=== PATIENT | female | born 1985 | race Caucasian/White ===

== ENCOUNTER 2020-01-28 08:54 | Emergency (ER) | payer MEDICAID, SELFPAY ==
[2020-01-28 09:09] VITALS: BP 118/74; PULSE 83; RESP 20; TEMP 36.9; O2SAT 100
--- NOTE | 2020-01-28 09:18 | ED.URI ---
HPI - URI/Sore Throat General Chief Complaint: Upper Respiratory Infection Stated Complaint: Cold/Flu symptoms Time Seen by Provider: 01/28/20 09:26 Source: patient and RN notes reviewed Mode of arrival: ambulatory Limitations: no limitations History of Present Illness HPI Narrative: 34-year-old female presents with concern for cough, sore throat, low-grade fever, headache. Reports symptoms started yesterday. Reports exposure to influenza. Reports taking Motrin. MD elicited complaint: sore throat Related Data Home Medications Medication Instructions Recorded Confirmed citalopram [Celexa] 10 mg PO DAILY 01/28/20 01/28/20 levonorgestrel [Mirena] INTRAUTERINE 01/28/20 Allergies Allergy/AdvReac Type Severity Reaction Status Date / Time AMOXICILLIN TRIHYDRATE AdvReac Mild Nausea and Uncoded 10/01/19 09:50 Vomiting POTASSIUM CLAVULANATE AdvReac Mild Nausea and Uncoded 10/01/19 09:50 Vomiting Review of Systems Review of Systems: Narrative: CONSTITUTIONAL: Reports malaise, low-grade fever. EYES: Denies visual changes, redness, or discharge. ENT: Reports rhinorrhea, congestion, sore throat. Denies sinus pain, otalgia. CARDIOVASCULAR: Denies chest pain, palpitations, or edema. RESPIRATORY: Reports cough. Denies dyspnea. GASTROINTESTINAL: Denies abdominal pain, nausea, vomiting, diarrhea SKIN: Denies rash or itching. MUSCULOSKELETAL: Reports myalgia. NEUROLOGIC: Report headache. All systems reviewed & are unremarkable except as noted in HPI and below PMFSH Comments At time of signature, agree with nursing past medical, surgical, social and family history. There is no relevant family history pertinent to the presenting complaint Exam Narrative: Exam Narrative: GENERAL: Well-appearing, well-nourished, and in no acute distress. HEAD: Normocephalic EYES: PERRLA, conjunctivae clear ENT: Nares clear, turbinates edematous and erythematous, clear discharge. Mucous membranes moist. TM pearly cage with sharp light reflex bilaterally; no tragal tenderness. Oropharynx not erythematous without lesions. Tonsils not enlarged and without exudate, no drooling, no hoarseness, no trismus, uvula midline. NECK: Supple. No lymphadenopathy CHEST: Clear to auscultation, breath sounds equal. No wheezing, rhonchi, rales, or stridor. No respiratory distress, speaks in full sentences. HEART: Regular rate and rhythm. No murmur heard. SKIN: Warm, dry, no rash. NEURO: Alert and oriented x3. PSYCH: Normal mood and affect Course Course Emergency Course: Patient is aware of diagnosis, understands and agrees to treatment plan. Anticipatory guidance given. Patient agrees to follow-up as directed and is aware of reasons to seek care at the emergency department. Portions of this record may have been created with voice recognition software Vital Signs Vital signs: Vital Signs Temperature 98.5 F 01/28/20 09:09 Pulse Rate 83 01/28/20 09:09 Respiratory Rate 20 01/28/20 09:09 Blood Pressure 118/74 01/28/20 09:09 Pulse Oximetry 100 01/28/20 09:09 Temperature 98.5 F 01/28/20 09:09 Pulse Rate 83 01/28/20 09:09 Respiratory Rate 20 01/28/20 09:09 Blood Pressure 118/74 01/28/20 09:09 Pulse Oximetry 100 01/28/20 09:09 Reviewed. MDM - URI/Sore Throat MDM Narrative Medical decision making narrative: Differential diagnosis considered: Strep pharyngitis, allergic rhinitis, upper respiratory tract infection, sinusitis, rhinosinusitis, nasopharyngitis. viral pharyngitis, otitis media, otitis externa, pneumonia, bronchitis, viral cough syndrome, viral syndrome, and influenza. Exam findings show no acute concerns or changes; patient is non-toxic appearing and is in no distress. Patient is appropriate for outpatient treatment and follow-up. Lab Data Attestation: I reviewed the patient's lab results. Critical Care Time Critical Care Time Critical Care Time: No Discharge Plan Discharge Clinical Impression: Upper respir
== END 2020-01-28 09:45 | disposition home or self-care (01) ==
PROVIDERS: Emergency Provider Nurse Practitioner
DX: J06.9 Acute upper respiratory infection, unspecified (principal)
CPT/HCPCS: 87804; 99213; G0463

== ENCOUNTER 2021-03-21 12:01 | Emergency (ER) | payer OTHER, SELFPAY ==
--- NOTE | ~2021-03-21 | XR_ITS ---
XR ankle LT min 3V DATE: 03/21/2021 12:18 INDICATION: Inversion injury. Lateral pain. TECHNIQUE: 4 views COMPARISON: None FINDINGS: There is a linear oblique fracture of the lateral malleolus with approximately one cortical width lateral and posterior displacement. Medial malleolus and the posterior malleolus appear intact . The ankle mortise appears preserved. IMPRESSION: Minimally posterolaterally displaced lateral malleolar fracture Reviewed, dictated and finalized at location A.
[2021-03-21 12:05] VITALS: BP 126/70; PULSE 128; RESP 16; TEMP 37.2; O2SAT 100
--- NOTE | 2021-03-21 12:05 | ED.GENADULT ---
HPI - General Adult General Chief complaint: Extremity Injury, Lower Stated complaint: Left ankle injury Time Seen by Provider: 03/21/21 12:04 Source: patient Mode of arrival: ambulatory Limitations: no limitations History of Present Illness HPI narrative: 35-year-old female patient presents to the [facility] with complaints of left ankle pain since last night. Patient states that she was getting out of her car rolled her ankle. Patient states that she slept with the elevated last night and has taken ibuprofen for the pain. Patient states she woke up this morning continues to have pain especially when walking on it as well swelling and wanted to come in to get checked out. Denies any numbness or tingling to the toes. Related Data Home Medications Medication Instructions Recorded Confirmed fluoxetine 10 mg PO DAILY 03/21/21 03/21/21 Allergies Allergy/AdvReac Type Severity Reaction Status Date / Time AMOXICILLIN TRIHYDRATE AdvReac Mild Nausea and Uncoded 03/21/21 12:12 Vomiting POTASSIUM CLAVULANATE AdvReac Mild Nausea and Uncoded 03/21/21 12:12 Vomiting Review of Systems Review of Systems: Narrative: CONSTITUTIONAL: Denies fever, chills, or sweats. EYES: Denies visual changes, redness, or discharge. ENT: Denies rhinorrhea, congestion, sore throat, or otalgia. CARDIOVASCULAR: Denies chest pain, palpitations, or edema. RESPIRATORY: Denies cough or dyspnea. GASTROINTESTINAL: Denies abdominal pain, nausea, vomiting, or diarrhea. GENITOURINARY: Denies dysuria or hematuria. SKIN: Denies rash or itching. MUSCULOSKELETAL: Denies back pain, joint pain, or myalgia. Positive left ankle pain NEUROLOGIC: Denies headache, numbness, or weakness. PSYCHIATRIC: Denies anxiety or depression. [facility] Past Medical History Medical History (Updated 03/21/21 @ 12:53 by ANTWAN Smallwood) Anxiety Comments At the time of my signature I agree with nursing past medical history, surgical, social, and family history. There is no relevant family history pertinent to the presenting complaint. Exam Narrative: Exam Narrative: GENERAL: Well-appearing, well-nourished, and in no acute distress. HEAD: Normocephalic, atraumatic. EYES: PERRLA and EOMI. ENT: Nares clear, no rhinorrhea or epistaxis. Mucous membranes moist. NECK: Supple. No lymphadenopathy CHEST: Clear to auscultation. No respiratory distress. HEART: Regular rate and rhythm. No murmur heard. Normal peripheral pulses. ABDOMEN: Soft, nontender, nondistended, normal active bowel sounds. EXTREMITIES: Patient is able to bear weight and ambulate but has increased pain to the left ankle. The L ankle is without obvious asymmetry or deformity when compared to the R ankle. Patient can flex/extend, invert/jose. There is some soft tissue swelling noted over the lateral side of the ankle over the lateral malleolus area. Bony tenderness to palpation over the lateral malleolus. Anterior talofibular ligament, posterior talofibular ligament, calcaneofibular ligament nontender and without swelling. No tenderness or deformity of the midfoot r over the proximal fifth metatarsal. Good DP and posterior tibial pulses and sensation to light touch normal. Talar tilt test is negative for ligament laxity to valgus or vargus stress. Negative anterior draw. Peroneal nerve is intact with strong eversion and plantar flexion. SKIN: Warm, dry, no rash. NEURO: No focal deficits. Alert and oriented x3. Course Reevaluation(s) Reevaluation #1: Reevaluated patient after her x-ray resulted notified her that she does have a fracture to the lateral malleolus area. Discussed with her that we will go ahead and splint her and fit her for some crutches today. Discussed with patient she will need to follow-up with orthopedic surgeon for further evaluation. Discussed with patient I will go ahead and take her off of work until she follows up with orthopedic surgeon but she will need to call tomorrow morning to schedule her
== END 2021-03-21 12:55 | disposition home or self-care (01) ==
PROVIDERS: Emergency Provider Nurse Practitioner Family
DX: S82.62XA Displaced fracture of lateral malleolus of left fibula, initial encounter for closed fracture (principal); X50.9XXA Other and unspecified overexertion or strenuous movements or postures, initial encounter; F41.9 Anxiety disorder, unspecified
CPT/HCPCS: 29515; 73610; 99214; G0463

== ENCOUNTER 2022-06-20 11:04 | Observation (INO) | payer OTHER, SELFPAY ==
[2022-06-20] VITALS (8 sets, daily range): BP systolic 117–121; BP diastolic 80–82; PULSE 80–99; TEMP 37.1; O2SAT 100; BMI 34.0
--- NOTE | 2022-06-22 19:17 | PM.OBTRLD ---
OB - Triage/Final Diagnosis Visit Information Comments/Additional reasons for admission: I have assessed the risk for this patient, Lea Kraft, and determined that she would benefit from observation care. Final Diagnosis (1) Vaginal discharge during : Code(s): O26.899 - Other specified related conditions, unspecified trimester; N89.8 - Other specified noninflammatory disorders of vagina Status: Acute
== END 2022-06-20 13:20 | disposition home or self-care (01) ==
PROVIDERS: Admitting Provider Obstetrics & Gynecology; Visit Provider Obstetrics & Gynecology
DX: O26.893 Other specified pregnancy related conditions, third trimester (principal); N89.8 Other specified noninflammatory disorders of vagina; Z3A.35 35 weeks gestation of pregnancy
CPT/HCPCS: 84112; G0378; G0379

== ENCOUNTER 2022-06-24 20:12 | Observation (INO) | payer OTHER, SELFPAY ==
--- NOTE | 2022-06-29 07:02 | PM.OBTRLD ---
OB - Triage/Final Diagnosis Visit Information Date of evaluation: 06/25/22 Reason for evaluation: threatened labor Comments/Additional reasons for admission: I have assessed the risk for this patient, Lea Kraft, and determined that she would benefit from observation care.
== END 2022-06-24 22:50 | disposition home or self-care (01) ==
PROVIDERS: Admitting Provider Obstetrics & Gynecology; Visit Provider Obstetrics & Gynecology
DX: O47.03 False labor before 37 completed weeks of gestation, third trimester (principal); Z3A.36 36 weeks gestation of pregnancy
CPT/HCPCS: G0378; G0379

== ENCOUNTER 2022-07-07 16:22 | Inpatient (IN) | payer OTHER, SELFPAY ==
[2022-07-07] VITALS (68 sets, daily range): BP systolic 90–153; BP diastolic 58–97; PULSE 81–172; TEMP 36.9–37.2; O2SAT 97–100; BMI 33.7
[2022-07-07 17:29] LABS: Basophils Percent Auto 0.1 % (0.2-1.2); Eosinophils Absolute Auto 0.1 K/mm3 (0-0.3); Eosinophils Percent Auto 0.7 % (0-4.4); Hematocrit 36.9 % (37.0-47.0); Hemoglobin 12.3 g/dL (12.0-15.0); Immature Granulocyte Absolute 0.02 K/mm3 (0.00-0.031); Immature Granulocyte Percent A 0.3 % (0-0.5); Lymphocytes Absolute Auto 2.01 K/mm3 (0.9-3.2); Lymphocytes Percent Auto 27.6 % (18.3-44.2); Mean Corpuscular HGB Conc 33.3 g/dl (32-36); Mean Corpuscular Hemoglobin 29.6 pg (26-34); Mean Corpuscular Volume 88.9 fl (80-100); Monocytes Absolute Auto 0.5 K/mm3 (0.1-0.6); Monocytes Percent Auto 7.4 % (2.6-8.5); Neutrophils Absolute Auto 4.7 K/mm3 (1.3-6.7); Neutrophils Percent Auto 63.9 % (45.5-73.1); Platelet Count Result 192 k/mm3 (150-375); Red Blood Count 4.15 M/mm3 (4.2-5.4); Red Cell Distribution Width 13.2 % (11.5-14.5); White Blood Count 7.3 K/mm3 (4.5-10.0)
--- NOTE | 2022-07-07 17:37 | WPDANESEPP ---
Anes - Eval Pre Procedure Procedure: Labor epidural Date/Time: 07/07/22 17:37 Surgeon: Edy Preop Diagnosis: Abd pain with contractions Pre Op Diagnosis: LABOR Patient Data Age: 37 Gender: F Height: 1.63 m Weight: 89 kg Last Vital Signs O2 Del Method Room Air 07/07/22 17:24 Allergies Allergy/AdvReac Type Severity Reaction Status Date / Time AMOXICILLIN TRIHYDRATE AdvReac Mild Nausea and Uncoded 05/06/21 15:39 Vomiting POTASSIUM CLAVULANATE AdvReac Mild Nausea and Uncoded 05/06/21 15:39 Vomiting Home Medications Medication Instructions Recorded Confirmed Type fluoxetine 10 mg capsule 20 mg PO DAILY 03/21/21 06/20/22 History vit no.95-ferrous 1 tablet PO DAILY 06/20/22 06/20/22 History fumarate 28 mg-folic acid 800 mcg tablet () Laboratory Tests 07/07/22 07/07/22 17:22 17:22 WBC 7.3 K/mm3 K/mm3 (4.5-10.0) RBC 4.15 M/mm3 L M/mm3 (4.2-5.4) Hgb 12.3 g/dL g/dL (12.0-15.0) Hct 36.9 % L % (37.0-47.0) MCV 88.9 fl fl (80-100) MCH 29.6 pg pg (26-34) MCHC 33.3 g/dl g/dl (32-36) RDW 13.2 % % (11.5-14.5) Plt Count 192 k/mm3 k/mm3 (150-375) MPV 11.0 fl H fl (7.4-10.4) Immature Gran % (Auto) 0.3 % % (0-0.5) Neut % (Auto) 63.9 % % (45.5-73.1) Lymph % (Auto) 27.6 % % (18.3-44.2) [place] % (Auto) 7.4 % % (2.6-8.5) Eos % (Auto) 0.7 % % (0-4.4) Baso % (Auto) 0.1 % L % (0.2-1.2) Lymph # (Auto) 2.01 K/mm3 K/mm3 (0.9-3.2) [place] # (Auto) 0.5 K/mm3 K/mm3 (0.1-0.6) Eos # (Auto) 0.1 K/mm3 K/mm3 (0-0.3) Baso # (Auto) 0.0 K/mm3 K/mm3 (0.0-0.1) Abs Immat Gran (auto) 0.02 K/mm3 K/mm3 (0.00-0.031) Absolute Neuts (auto) 4.7 K/mm3 K/mm3 (1.3-6.7) Absolute Nucleated RBC 0.0 K/mm3 K/mm3 (0.0-0.012) Nucleated RBC % 0.0 % % (0.0-0.2) RPR Pending Patient hx anesthesia problems: none Family hx anesthesia problems: none Results Review: All pre-operative results and documents have been reviewed as part of the pre-operative evaluation. [facility] Past Medical History Medical History Anxiety Claustrophobia Overweight (BMI 25.0-29.9) and not yet delivered Family History Family History Other Asthma Depression Diabetes mellitus Hypertension Social History Social History Smoking status: Never smoker Second hand tobacco smoke exposure: No Alcohol intake: never Substance use: never Gender identity (if verbalized by the patient): Female Spiritual care concerns: No Exam Day of Procedure 07/07/22 17:37 Patient weight: overweight Heart: regular rate and rhythm Airway: Mallampati scale class II
[2022-07-07] MEDS: LACTATED RINGERS 1,000 ML 125 ML IV CONT ×2 (18:17→19:39)
[2022-07-07] MEDS: ONDANSETRON INJ 4 MG/2 ML VIAL IV PUSH (19:46)
[2022-07-07] MEDS: AMPICILLIN 2 GM/NS 100 ML 2 GM/100 ML BAG IVPB (21:26)
[2022-07-07] MEDS: OXYTOCIN 30 UNITS/NS 500 ML 30 UNITS/500 ML BAG IV CONT (21:45)
--- NOTE | 2022-07-07 21:59 | PM.OBPRVD ---
OB - Delivery Note Procedure Delivery date: 07/07/22 Procedure: Induction method: AROM and Per Pitocin Protocol Delivery monitor: External FHT and External Uterine Route of delivery: Laceration Description: Perineal - 2nd Degree Delivery repair: vicryl Quantitative Blood Loss (ml): 200 Anesthesia type: Epidural Baby Date of : 07/07/22 Time of : 21:41 Weeks of gestation at delivery: 39 gender: Female Weight (pounds): 7 Weight (ounces): 10 presentation: vertex score one minute: 8 score five minutes: 9
[2022-07-07] MEDS: OXYTOCIN 30 UNITS/NS 500 ML 30 UNITS/500 ML BAG 125 UNITS IV CONT (22:17)
[2022-07-08] VITALS (7 sets, daily range): BP systolic 111–136; BP diastolic 71–85; PULSE 78–88; RESP 16–20; TEMP 36.4–36.8; O2SAT 98–99
[2022-07-08] MEDS: BENZOCAINE 20% AER SPR (*SP) 56 GM CAN 1 SPRAY TOPICAL (00:05)
[2022-07-08] MEDS: WITCH HAZEL 40 PADS 1 PAD TOPICAL (00:06)
--- NOTE | 2022-07-08 00:45 | PC.NURSE ---
Patient transferred to post room #290 per wheelchair from labor and delivery. Support person present. Oriented to unit, room, information board, rooming in, admission packet and security measures. Patient verbalizes understanding.
[2022-07-08] MEDS: IBUPROFEN 600 MG TABLET PO ×3 (02:40→23:04)
[2022-07-08 05:54] LABS: Hematocrit 31.4 % (37.0-47.0); Hemoglobin 10.4 g/dL (12.0-15.0)
--- NOTE | 2022-07-08 06:54 | PM.OBPNVD ---
OB - PN: Subj Subjective Date/time seen: 07/08/22 06:54 Patient comments: no complaints and pain well controlled baby status: nursing well [place] feeding status: exclusively breast feeding OB - PN: Obj Data Labs CBC & Chem 7: 07/08/22 05:28 Labs: Laboratory Results - last 24 hr 07/07/22 07/07/22 07/08/22 17:22 17:22 05:28 WBC 7.3 RBC 4.15 L Hgb 12.3 10.4 L Hct 36.9 L 31.4 L MCV 88.9 MCH 29.6 MCHC 33.3 RDW 13.2 Plt Count 192 MPV 11.0 H Immature Gran % (Auto) 0.3 Neut % (Auto) 63.9 Lymph % (Auto) 27.6 [place] % (Auto) 7.4 Eos % (Auto) 0.7 Baso % (Auto) 0.1 L Lymph # (Auto) 2.01 [place] # (Auto) 0.5 Eos # (Auto) 0.1 Baso # (Auto) 0.0 Abs Immat Gran (auto) 0.02 Absolute Neuts (auto) 4.7 Absolute Nucleated RBC 0.0 Nucleated RBC % 0.0 Blood Type AB Positive Antibody Screen Negative OB - PN A/P Plan day: 1 Plan: routine care Time Spent With Patient Time: Total time spent is greater than 50% in coordination of care (as documented) at patient's floor/unit and/or counseling patient: Time with patient: less than 15 minutes Exam Narrative: NAD abdomen soft, nontender, fundus firm below the umbilicus Extremities nontender, 1+ edema
--- NOTE | 2022-07-08 07:38 | WPDANLDPN2 ---
Anes-Prog Note L&D Date/Time: 07/08/22 07:38 Comfortable throughout: labor and delivery Neuraxial method: epidural Epidural/Spinal procedure site: clean & non-tender Neuro status: Neuro function grossly intact. Vital Signs: Last Vital Signs Temp 36.6 C 07/08/22 05:25 Pulse 84 07/08/22 05:25 Resp 18 07/08/22 05:25 BP 124/71 07/08/22 05:25 Pulse Ox 98 07/07/22 21:29 O2 Del Method Room Air 07/07/22 17:24 Pain score (VAS): 1 I/O: Intake & Output 07/07/22 07/07/22 07/08/22 15:59 23:59 07:59 Intake Total 2600 Output Total 200 128 Balance 2400 -128 Patient feedback: Patient satisfied with anesthetic care.
[2022-07-08] MEDS: FLUoxetine HCL 20 MG CAPSULE PO (08:28)
[2022-07-08] MEDS: DOCUSATE SODIUM 100 MG CAPSULE PO ×2 (08:28→17:25)
[2022-07-08] MEDS: MULTIVIT/MIN/PREN/FOL AC/IRON TABLET 1 TAB PO (08:28)
[2022-07-08 08:47] LABS: Rapid Plasma Reagin Non-Reactive (NonReactive)
[2022-07-09 07:45] VITALS: BP 116/80; PULSE 82; RESP 18; TEMP 36.4; O2SAT 97
[2022-07-09] MEDS: IBUPROFEN 600 MG TABLET PO (08:21)
[2022-07-09] MEDS: FLUoxetine HCL 20 MG CAPSULE PO (08:21)
[2022-07-09] MEDS: MULTIVIT/MIN/PREN/FOL AC/IRON TABLET 1 TAB PO (08:21)
--- NOTE | 2022-07-09 08:27 | PM.OBPNVD ---
OB - PN: Subj Subjective Date/time seen: 07/09/22 08:27 Patient comments: no complaints, pain well controlled and tolerating diet OB - PN: Obj Data Labs CBC & Chem 7: 07/08/22 05:28 Labs: Laboratory Results - last 24 hr 07/07/22 17:22 RPR Non-reactive OB - PN A/P Plan day: 2 Plan: routine care and discharge home Time Spent With Patient Time: Total time spent is greater than 50% in coordination of care (as documented) at patient's floor/unit and/or counseling patient: Exam Const: General: comfortable and no acute distress Resp: Effort & Inspection: normal respiratory effort Auscultation: no rales, no rhonchi and no wheezes Cardio: Rate: regular rate Heart sounds: no click, no murmurs and no rubs GI: GI Palp: Yes Soft to palpation and No Tenderness to palpation present (GI) Auscultation: normal bowel sounds Extrem: General: normal to inspection, no pedal edema and no calf tenderness
--- NOTE | 2022-07-09 08:30 | PM.OBDSVD ---
DS: Admitting Diagnosis Discharge Date 07/09/22 Admitting Diagnosis term DS: Discharge Diagnosis Discharge Diagnosis (1) Term delivered: Code(s): O80 - Encounter for full-term uncomplicated delivery Status: Acute OB - DS: Summary OB Procedures : None OB Procedures Intrapartum: Spontaneous Vag Delivery OB Procedures: : None Time Spent with Patient Time attestation: Total time spent providing and/or coordinating discharge services: DS: Data Data Completed and Pending Labs on day of discharge: Labs from last 24 hours 07/07/22 17:22 RPR Non-reactive Discharge Plan Discharge Discharging Clinician: Ravi Kwok Patient Disposition: Home, Self-Care Activity: pelvic rest Diet: regular Patient Instructions: Antibiotic Form Stand Alone Forms: General Discharge Information Follow-up/Referrals: Ravi Kwok MD [Physician] - Discharge Medications: Continued fluoxetine 10 mg capsule 20 mg PO DAILY PNV cmb#95-ferrous fumarate-FA [] 28 mg iron- 800 mcg Tablet 1 tablet PO DAILY Date of admission: 07/07/22 16:22 Primary Care Provider: PHYSICIAN,SERVICE ORDER CLERK Admitting Provider: Karey Todd Attending physician on admission: Karey Todd Condition: Stable
--- NOTE | 2022-07-09 10:47 | PC.NURSE ---
Patient viewed the discharge video Mother & Baby Care, The First Two Weeks . Patient was given the opportunity and encouraged to ask questions. Patient verbalized understanding of information shared and has been given the mother/baby guide for home reference.
[2022-07-11 10:50] VITALS: BP 127/86; PULSE 86; RESP 20; TEMP 37.1; O2SAT 98
== END 2022-07-09 11:35 | disposition home or self-care (01) | DRG 807 ==
LOC: ANHLDR 17:41 → ANHOB2 07-09 08:32 → ANHLDR 07-11 09:51
PROVIDERS: Admitting Provider Obstetrics & Gynecology; Visit Provider Obstetrics & Gynecology
DX: O42.92 Full-term premature rupture of membranes, unspecified as to length of time between rupture and onset of labor (principal); Z37.0 Single live birth; O70.1 Second degree perineal laceration during delivery; O76 Abnormality in fetal heart rate and rhythm complicating labor and delivery; O69.81X0 Labor and delivery complicated by cord around neck, without compression, not applicable or unspecified; Z3A.38 38 weeks gestation of pregnancy
CPT/HCPCS: 36415; 84112; 85014; 85018; 85025; 86592; 86850; 86900; 86901; A9270; J0290; J2405; J2590; J2795; J7120